=== PATIENT | male | born 1965 | race Caucasian/White ===

== ENCOUNTER 2016-12-01 12:01 | Inpatient (IN) | payer OTHER ==
[~2016-12-01] VITALS: Ht 188 cm; Wt 113.0 kg
[~2016-12-01 12:01] MED LIST: AMOXICILLIN 8751 TAB PO; ASPIRIN E.C. 8181 MG PO; BRILINTA90 MG PO; CELEXA 20MG20 MG/TAB PO; CIALIS20 MG PO; HCTZ 25MG TAB25 MG PO; IMDUR 30MG30 MG/TAB PO; KLONOPIN WAF0.125 MG PO; LEVSIN0.125 M1 PO; LIPITOR20 MG PO; LOPRESSOR 225 MG/TAB PO; LOPRESSOR 550 MG/TAB PO; NITROSTAT0.4 MG/TAB SL; NORVASC 5MG5 MG/TAB PO; TESTOLIN50 MG/ML IM; ZESTRIL40 MG PO
[2017-03-23] VITALS (12 sets, daily range): BP systolic 67–111; BP diastolic 47–77; PULSE 50–78; TEMP 98.2–100.3
[2017-03-23] MEDS ORDERED: CIALIS20 MG PO (01:52)
[2017-03-23] MEDS ORDERED: LASIX 40MG TABL40 MG PO (01:52)
[2017-03-23] MEDS ORDERED: NORVASC 10MG10 MG PO (01:54)
[2017-03-23] MEDS ORDERED: CELEXA 20MG20 MG/TAB PO (01:55)
[2017-03-23] MEDS ORDERED: IMDUR 30MG30 MG/TAB PO (01:55)
[2017-03-24 03:38] VITALS: BP 104/59; PULSE 69; TEMP 98.9; TEMP 99.8
[2017-03-24 07:28] VITALS: BP 101/57; PULSE 72; TEMP 98.6
[2017-03-24 08:33] LABS: HEMATOCRIT 36.1 % (42.0-52.0)
[2017-03-24 12:18] VITALS: BP 110/44; PULSE 72; TEMP 98.6
[2017-03-24 16:00] VITALS: BP 127/70; PULSE 88; TEMP 98.4
[2017-03-24 22:37] VITALS: BP 108/58; PULSE 81; TEMP 98.8
[2017-03-25 02:18] VITALS: BP 100/62; PULSE 75; TEMP 98.2
[2017-03-25 05:08] VITALS: BP 103/51; PULSE 73; TEMP 98.5
[2017-03-25] MEDS ORDERED: NORCO 325 MG-7.1 TAB PO (06:40)
[2017-03-25] MEDS ORDERED: SENOKOT S 50 MG1 TAB PO (06:41)
[2017-03-25] MEDS ORDERED: ROXICODONE 55 MG/TAB PO (06:41)
[2017-03-25 07:39] VITALS: BP 115/58; PULSE 76; TEMP 98.6
[2017-03-25 07:48] LABS: HEMATOCRIT 32.4 % (42.0-52.0); HEMOGLOBIN 10.9 g/dl (13.5-18.0)
== END 2017-03-25 15:23 | disposition home or self-care (01) | DRG 470 ==
LOC: JCC 02-15 10:45
PROVIDERS: Orthopaedic Surgery
PROC: 0SRC0J9 Replacement of Right Knee Joint with Synthetic Substitute, Cemented, Open Approach (ICD-10-PCS; principal; 2017-03-23 07:30)
DX: M17.31 Unilateral post-traumatic osteoarthritis, right knee (principal); I10 Essential (primary) hypertension; I25.10 Atherosclerotic heart disease of native coronary artery without angina pectoris
CPT/HCPCS: A4314; A9284; C1713; C1776; J0690; J1650; J2250; J2405; J2704; J3010; J7120

== ENCOUNTER → 2017-01-27 | Outpatient (CLI) | payer OTHER | LOC: COL.LAB 10:30 | DX: Z01.812 Encounter for preprocedural laboratory examination (principal); M25.861 Other specified joint disorders, right knee ==

== ENCOUNTER 2017-03-01 08:03 | Day surgery (SDC) | payer OTHER ==
[~2017-03-01] VITALS: Ht 188.3 cm; Wt 108.0 kg
[2017-03-01] VITALS (12 sets, daily range): BP systolic 87–119; BP diastolic 55–76; PULSE 42–56; TEMP 97.9–98.6
[2017-03-01 08:49] LABS: HEMATOCRIT 51.8 % (42.0-52.0); MEAN CELL VOLUME 94 fl (80.0-100.0); MEAN CORPUSCULAR HEMOGLOBIN 33 pg (27.0-31.0); MEAN CORPUSCULAR HGB CONC 35 g/dl (33.0-37.0); MEAN PLATELET VOLUME 10.2 fl (7.4-10.4); PLATELET COUNT 230 K/mm3 (130-400); RED BLOOD COUNT 5.49 M/mm3 (4.20-5.60); WHITE BLOOD COUNT 5.5 K/mm3 (4.8-10.8)
[2017-03-01 08:53] LABS: HEMOGLOBIN 18.1 g/dl (13.5-18.0); POTASSIUM 4.7 mmol/L (3.4-5.0)
[2017-03-01 08:56] LABS: CALCIUM 10.1 mg/dL (8.4-10.2); CREATININE, serum 1.31 mg/dL (0.66-1.25)
[2017-03-01 09:29] LABS: PROTHROMBIN TIME 11.3 SECONDS (9.7-12.8)
== END 2017-03-01 16:10 | disposition home or self-care (01) ==
LOC: COL.CAR 08:03
PROVIDERS: Internal Medicine Cardiovascular Disease
DX: I25.10 Atherosclerotic heart disease of native coronary artery without angina pectoris (principal); I10 Essential (primary) hypertension; I25.2 Old myocardial infarction; I45.6 Pre-excitation syndrome; I47.1 Supraventricular tachycardia; Q21.1 Atrial septal defect; K58.9 Irritable bowel syndrome, unspecified; Z82.49 Family history of ischemic heart disease and other diseases of the circulatory system; Z83.3 Family history of diabetes mellitus; G89.29 Other chronic pain
CPT/HCPCS: J2250; J3010; Q9967

== ENCOUNTER → 2017-06-16 | Outpatient (CLI) | payer OTHER ==
[~2017-06-16] MED LIST changes: +LASIX 40MG TABL40 MG PO; +NORCO 325 MG-7.1 TAB PO; +NORVASC 10MG10 MG PO; +PREDNISONE20 MG PO; +ROXICODONE 55 MG/TAB PO; +SENOKOT S 50 MG1 TAB PO
== END ==
LOC: COL.RAD 07:26
DX: N45.2 Orchitis (principal); N50.82 Scrotal pain; N43.3 Hydrocele, unspecified; I86.1 Scrotal varices

== ENCOUNTER 2018-06-07 07:05 | Day surgery (SDC) | payer OTHER ==
[~2018-06-07] VITALS: Ht 188 cm; Wt 120.8 kg
[2018-06-07 07:29] VITALS: BP 121/86; PULSE 54; TEMP 98.3
[2018-06-07] MEDS ORDERED: ARMOUR THYROID15 MG PO (07:29)
[2018-06-07 10:45] VITALS: BP 110/58; PULSE 64; TEMP 97.6
--- NOTE | 2018-06-07 10:45 | NUR ---
Patient arrives to [facility] [place] [address] via cart, accompanied by P[employer]ING [employer] SUPERVISOR. Patient is drowsy, but easily aroused to voice and oriented. Monitoring applied - VSS and WNL on room air. Patient has one incision on his left upper back, closed with swiftset, clean/dry/intact. Dr. Maher and patient's come to the bedside - Dr. Maher addresses all questions. Patient denies any pain or nausea. Offered and receives water and a muffin to eat. Will continue to monitor.
[2018-06-07 11:00] VITALS: BP 95/78; PULSE 62
--- NOTE | 2018-06-07 11:00 | NUR ---
VSS and WNL on room air. Patient ate muffin and is drinking water, tolerating PO well. Denies any pain, nausea, or need.
[2018-06-07] MEDS ORDERED: MOTRIN 600600 MG/TAB PO (11:01)
[2018-06-07] MEDS ORDERED: NORCO 325 MG-51 TAB PO (11:01)
[2018-06-07] MEDS ORDERED: COLACE 100100 MG/CAP PO (11:02)
[2018-06-07 11:15] VITALS: BP 116/55; PULSE 63
--- NOTE | 2018-06-07 11:15 | NUR ---
Patient is asleep in room. VSS and WNL on room air.
[2018-06-07 11:30] VITALS: BP 97/37; PULSE 64
--- NOTE | 2018-06-07 11:30 | NUR ---
Patient asleep. VSS and WNL on room air.
[2018-06-07 11:45] VITALS: BP 101/57; PULSE 66
--- NOTE | 2018-06-07 11:45 | NUR ---
VSS and WNL on room air. Denies any pain, nausea, or need. Awake and alert.
--- NOTE | 2018-06-07 12:02 | NUR ---
Patient has met discharge criteria. Discharge instructions discussed, denies any questions, and verbalizes understanding. PIV removed with catheter intact and hemostasis achieved. Patient changes to clothing independently. Escorted to exit via wheelchair. Discharged to home with ride in private vehicle at 1202.
== END 2018-06-07 12:02 | disposition home or self-care (01) ==
LOC: SDCO 07:05
DX: D17.1 Benign lipomatous neoplasm of skin and subcutaneous tissue of trunk (principal); I10 Essential (primary) hypertension; E78.5 Hyperlipidemia, unspecified; I25.10 Atherosclerotic heart disease of native coronary artery without angina pectoris; E23.0 Hypopituitarism; I25.2 Old myocardial infarction; G47.33 Obstructive sleep apnea (adult) (pediatric); K21.9 Gastro-esophageal reflux disease without esophagitis; I48.91 Unspecified atrial fibrillation; Z95.5 Presence of coronary angioplasty implant and graft; Z79.82 Long term (current) use of aspirin; Z96.651 Presence of right artificial knee joint; Z80.3 Family history of malignant neoplasm of breast; Z80.0 Family history of malignant neoplasm of digestive organs; Z82.49 Family history of ischemic heart disease and other diseases of the circulatory system
CPT/HCPCS: J0690; J1885; J2250; J2704; J3010; J7120

== ENCOUNTER → 2020-12-12 | Outpatient (CLI) | payer OTHER ==
[~2020-12-12] MED LIST changes: +ARMOUR THYROID15 MG PO; +COLACE 100100 MG/CAP PO; +MOTRIN 600600 MG/TAB PO; +NORCO 325 MG-51 TAB PO
== END ==
LOC: COL.RAD 07:39
DX: K76.0 Fatty (change of) liver, not elsewhere classified (principal)

== ENCOUNTER 2021-05-15 08:32 | Day surgery (SDC) | payer OTHER ==
[2021-05-15] VITALS (17 sets, daily range): BP systolic 103–155; BP diastolic 53–99; PULSE 53–106; TEMP 97.8–98.2
[~2021-05-15] VITALS: Ht 188 cm; Wt 122.6 kg
[~2021-05-15 08:32] MED LIST changes: +LIPITOR 80MG80 MG PO; -LIPITOR20 MG PO
[2021-05-15] MEDS ORDERED: TESTOPEL PELLET75 MG SQ (09:30)
[2021-05-15] MEDS ORDERED: COREG12.5 MG PO (09:32)
[2021-05-15] MEDS ORDERED: CIALIS10 MG PO (09:33)
[2021-05-15] MEDS ORDERED: COZAAR 50MG50 MG/TAB PO (09:33)
[2021-05-15 09:34] LABS: HEMATOCRIT 49.4 % (42.0-52.0); MEAN CELL VOLUME 93 fl (80.0-100.0); MEAN CORPUSCULAR HEMOGLOBIN 32 pg (27-31); MEAN CORPUSCULAR HGB CONC 34 g/dl (33.0-37.0); MEAN PLATELET VOLUME 10.7 fl (7.4-10.4); PLATELET COUNT 185 K/mm3 (130-400); RED BLOOD COUNT 5.31 M/mm3 (4.20-5.60)
[2021-05-15] MEDS ORDERED: NITROSTAT0.4 MG/TAB SL (09:34)
[2021-05-15] MEDS ORDERED: MULTI VITAMINS1 TAB PO (09:35)
[2021-05-15 09:37] LABS: PROTHROMBIN TIME 11.6 SECONDS (9.7-12.8)
[2021-05-15 09:39] LABS: PARTIAL THROMBOPLASTIN TIME 27.4 SECONDS (26.0-37.0)
[2021-05-15 09:57] LABS: CREATININE, serum 0.94 mg/dL (0.72-1.25); POTASSIUM 4.3 mmol/L (3.5-4.5)
--- NOTE | 2021-05-15 11:05 | NUR ---
SEE MERGE DOCUMENTATION FOR ALL MEDICATION ADMINISTRATION AND INTRA/POST PROCEDURE DOCUMENTATION.
--- NOTE | 2021-05-15 12:20 | NUR ---
PT ARRIVED TO ROOM 310. VSS. DENIES PAIN, PT IS NOT SHORT OF AIR. RADIAL SITE WITH NO ACTIVE BLEEDING. 11CC LEFT IN WRIST BAND. PT TO BE ON BEDREST UNTIL 2 PM. PT DENIES NEEDS AT THIS TIME.
--- NOTE | 2021-05-15 19:41 | NUR ---
Patient assessed at this time. Alert and oriented, and able to make needs known. Denies pain and discomfort. Peripheral INT to left forearm. Started 1/2 NS per orders. Site without redness, warmth, swelling, and pain. Denies SOB and dyspnea. LS CTA. HRR. Telemetry in place. Sinus miles, HR in the 50s. BSAx4. Voices no questions, needs, or concerns at this time. In bed with call light within reach.
[2021-05-16 03:49] VITALS: BP 150/85; PULSE 57; TEMP 98.4
--- NOTE | 2021-05-16 05:03 | NUR ---
Patient has been in bed with call light within reach. Has not voiced any complaints of pain or discomfort this shift. Completed 1L IV fluids per orders. Voices no questions, needs, or concerns at this time. In bed with call light within reach.
[2021-05-16 05:39] LABS: BASO % 0.3 % (0.0-2.0); EOS # 0.2 K/mm3 (0.0-0.7); GRAN # 4.9 K/mm3 (1.4-6.5); GRAN % 67.3 % (42.2-75.2); HEMATOCRIT 47.6 % (42.0-52.0); HEMOGLOBIN 16.6 g/dl (13.5-18.0); LYMPH # 1.4 K/mm3 (1.2-3.4); LYMPH % 18.8 % (20.0-51.0); MEAN CELL VOLUME 94 fl (80.0-100.0); MEAN CORPUSCULAR HEMOGLOBIN 33 pg (27-31); MEAN CORPUSCULAR HGB CONC 35 g/dl (33.0-37.0); MEAN PLATELET VOLUME 10.9 fl (7.4-10.4); MONO # 0.8 K/mm3 (0.1-0.6); MONO % 10.3 % (1.7-9.3); PLATELET COUNT 174 K/mm3 (130-400); RED BLOOD COUNT 5.08 M/mm3 (4.20-5.60); REDCELL DISTRIBUTION WIDTH-CV 12.9 % (11.5-14.5)
[2021-05-16 05:51] LABS: CREATININE, serum 0.99 mg/dL (0.72-1.25)
[2021-05-16 06:50] VITALS: BP 149/95; PULSE 60; TEMP 97.5
--- NOTE | 2021-05-16 07:45 | NUR ---
Patient doing well this morning and does not have any concerns/complaints. Plan at this time is for the patient to discharge. There is no ecchymosis or hematoma present at the site of cardiac cath. Patient denies any pain at the site or in general. Patient is A&Ox4 and independent in the room.
--- NOTE | 2021-05-16 10:15 | NUR ---
Initial visit; Patient and his thanked [employer]able [employer] Crew Chief for looking in on him and offering God's blessings and keeping him in her prayers.
[2021-05-16 12:22] VITALS: BP 130/70; PULSE 60
[2021-05-16] MEDS ORDERED: BRILINTA90 MG PO (12:38)
--- NOTE | 2021-05-16 13:33 | NUR ---
Patient discharged home w/o any difficulty. IV removed by this RN; Patient removed his telemetry when getting dressed. All discharge education gone over and patient verbalized understanding.
--- NOTE | 2021-05-16 13:52 | NUR ---
Primary nurse was assisted with [id number] patient care by [facility] Maria Antonia Brownlee and [facility] instructor Yvonne Cates MSN, RN.
--- NOTE | 2021-05-16 14:25 | NUR ---
dry drug worker attempted to meet with patient who was asleep at the time of entry. Upon re-visit, patient had discharged.
== END 2021-05-16 13:00 | disposition home or self-care (01) ==
LOC: COL.CAR 08:32 → MEDICAL 08:32 → COL.CAR 08:45 → MEDICAL 12:23 → COL.CAR 05-16 13:00
PROVIDERS: Internal Medicine Cardiovascular Disease
DX: I25.110 Atherosclerotic heart disease of native coronary artery with unstable angina pectoris (principal); I42.9 Cardiomyopathy, unspecified; I10 Essential (primary) hypertension; I45.89 Other specified conduction disorders; R00.1 Bradycardia, unspecified; G47.33 Obstructive sleep apnea (adult) (pediatric); I77.819 Aortic ectasia, unspecified site; E78.5 Hyperlipidemia, unspecified; Z95.5 Presence of coronary angioplasty implant and graft; Z79.899 Other long term (current) drug therapy; Z79.82 Long term (current) use of aspirin
CPT/HCPCS: OP; C1769; C1874; C1887; C9600; J0583; J1644; J2250; J3010; Q9967